=== PATIENT | male | born 1985 | race Caucasian/White ===

== ENCOUNTER 2019-04-11 03:11 | Outpatient (CLI) | payer BC, SELFPAY ==
[2019-04-11 11:28] LABS: Calculated LDL 147; Cholesterol 197 mg/dL (50-200); Glucose 97 mg/dL (70-100); HDL Cholesterol 40 mg/dL (40-60); Triglyceride 51 mg/dL (30-150)
== END 2019-04-11 03:31 ==
PROVIDERS: PCP General Practice; Visit Provider General Practice
DX: Z00.00 Encounter for general adult medical examination without abnormal findings (principal)
CPT/HCPCS: 36415; 80061; 82947; 83721

== ENCOUNTER 2020-03-11 10:40 | Outpatient (REF) | payer BC, SELFPAY ==
[2020-03-12 13:37] LABS: Anion Gap 10.3 mmol/L (3-11); BUN 11 mg/dL (7-18); CO2 28.7 mmol/L (21.0-32.0); CREATININE 1.06 mg/dL (0.70-1.30); Calcium 9.7 mg/dL (8.5-10.1); Calculated LDL 153 mg/dL (<100); Chloride 101 mmol/L (98-107); Cholesterol 219 mg/dL (<200); Glucose 78 mg/dL (74-106); HDL Cholesterol 41 mg/dL (40-60); Potassium 3.9 mmol/L (3.5-5.1); Sodium 140 mmol/L (136-145); Triglyceride 127 mg/dL (<150)
== END 2020-03-11 11:00 ==
LOC: LBN 10:40
PROVIDERS: PCP Nurse Practitioner Family; Visit Provider Nurse Practitioner Family
DX: E78.5 Hyperlipidemia, unspecified (principal)
CPT/HCPCS: 80048; 80061

== ENCOUNTER 2020-04-12 04:18 | Outpatient (CLI) | payer BC, SELFPAY ==
[2020-04-12 16:57] LABS: Anion Gap 9.9 mmol/L (3-11); BUN 17 mg/dL (7-18); CO2 30.1 mmol/L (21.0-32.0); CREATININE 1.04 mg/dL (0.70-1.30); Calcium 9.7 mg/dL (8.5-10.1); Chloride 100 mmol/L (98-107); Glucose 85 mg/dL (74-106); Potassium 3.2 mmol/L (3.5-5.1); Sodium 140 mmol/L (136-145)
== END 2020-04-12 04:38 ==
PROVIDERS: PCP Nurse Practitioner Family; Visit Provider Nurse Practitioner Family
DX: I10 Essential (primary) hypertension (principal)
CPT/HCPCS: 36415; 80048

== ENCOUNTER 2021-06-03 08:00 | Outpatient (CLI) | payer BC, SELFPAY ==
[2021-06-03 12:33] LABS: BUN 13 mg/dL (7-18); CREATININE 1.1 mg/dL (0.70-1.30); Calcium 9.8 mg/dL (8.5-10.1); Chloride 104 mmol/L (98-107); Glucose 93 mg/dL (74-106); Potassium 3.3 mmol/L (3.5-5.1); Sodium 145 mmol/L (136-145)
== END 2021-06-03 08:01 | disposition home or self-care (01) ==
LOC: LOS 08:00
PROVIDERS: PCP Nurse Practitioner Family; Referring Provider Nurse Practitioner Family; Visit Provider Nurse Practitioner Family
DX: I10 Essential (primary) hypertension (principal)
CPT/HCPCS: 36415; 80048

== ENCOUNTER 2024-05-23 01:39 | Outpatient (CLI) | payer BC, SELFPAY ==
[2024-05-23] MEDS: Inhaler, Assist Device 1 EACH MC (11:02)
[2024-05-23] MEDS: Levalbuterol HFA 15 GM INH 4 PUFF IH (11:02)
--- NOTE | 2024-05-27 15:14 | W.PFT ---
Date of service: 05/23/24 Time of Service: 10:00 Pulmonary Function Test Result Requesting Provider Zhane Hogue Indications: Asthma Interpretation Spirometry: Abnormal Lung Volumes: Normal Diffusion Capacity: Normal Impression Spirometry shows a mild decrease in FEV1/FVC at 69%. Normal 98% FVC 93% Normal lung volumes mild air trapping based elevatedR V/TLC. Normal diffusion Normal flow volume curve. Clinical Correlation therefore is recommended.
== END 2024-05-23 01:40 | disposition home or self-care (01) ==
LOC: RT 01:39
PROVIDERS: PCP Nurse Practitioner Family; Visit Provider Nurse Practitioner Family
DX: J45.909 Unspecified asthma, uncomplicated (principal)
CPT/HCPCS: 00123; 94060; 94726; 94729

== ENCOUNTER 2024-11-06 04:15 | Outpatient (CLI) | payer BC, SELFPAY ==
[2024-11-06 10:06] LABS: ESR 6 mm/hr (0-15)
[2024-11-06 10:07] LABS: Abs Immature Grans 0.16 10^3/uL (0.0-0.06); Absolute Basophil Count 0.09 10^3/uL (0.0-0.2); Absolute Eosinophil Count 0.44 10^3/uL (0.0-0.7); Absolute Lymphocyte Count 2.56 10^3/uL (1.2-3.4); Absolute Monocyte Count 0.58 10^3/uL (0.1-0.8); Basophils % 1.1 %; Eosinophils % 5.3 %; HCT 45.1 % (40.0-50.0); HGB 15.8 g/dL (13.5-17.5); Immature Grans % 1.9 %; Lymphocytes % 31.1 %; MCH 30.4 pg (27.0-33.0); MCV 87 fL (80-95); MPV 8.9 fL (8.0-11.0); Neutrophils % 53.6 %; Platelet Count 486 10^3/uL (130-400); RBC 5.19 10^6/uL (4.36-5.78); RDW 11.5 % (11.8-14.1); RDW-SD 37.1 fL; WBC 8.23 10^3/uL (4.4-10.8)
[2024-11-06 10:27] LABS: Bilirubin Negative (Negative); Blood Negative (Negative); Clarity Sl Cloudy (Clear); Glucose Negative (Negative); Ketones Trace mg/dL (Negative); Leukocyte Esterase Negative (Negative); Nitrite Negative (Negative); Specific Gravity 1.025 (1.005-1.025); pH 6.5 (5-8)
[2024-11-06 10:34] LABS: Bacteria Rare HPF (Negative); Crystals Negative HPF (Negative); Epithelial Cells Negative HPF (Negative); Mucus Negative (Negative); RBC 0-2 HPF (0-2); WBC Negative HPF (0-5)
[2024-11-06 10:35] LABS: C & S Indicated? No; Casts Negative LPF (Negative)
[2024-11-06 11:15] LABS: Hemoglobin A1C 5.4 % (<5.7)
[2024-11-06 11:22] LABS: ALT 30 U/L (16-63); AST 19 U/L (15-37); Albumin 3.9 g/dL (3.4-5.0); Alkaline Phosphatase 78 U/L (46-116); Anion Gap 10.7 mmol/L (3-11); BUN 19 mg/dL (7-18); Bilirubin, Total 0.24 mg/dL (0.2-1.0); CO2 31.3 mmol/L (21.0-32.0); CREATININE 1.1 mg/dL (0.70-1.30); Calculated LDL 150 mg/dL (<100); Chloride 102 mmol/L (98-107); Cholesterol 223 mg/dL (<200); Estimated GFR 87.57 (mL/min/1.73m2); Glucose 80 mg/dL (74-106); HDL Cholesterol 35 mg/dL (40-60); Potassium 3.8 mmol/L (3.5-5.1); Sodium 144 mmol/L (136-145); TSH (W/Ref FT4) 0.78 uIU/mL (0.36-3.74); Total Protein 7.8 g/dL (6.4-8.2); Triglyceride 190 mg/dL (<150)
[2024-11-06 11:35] LABS: C-Reactive Protein 1.65 mg/dL (<or=0.5)
[2024-11-06 19:10] LABS: HBs Antibody, Quant >1000.0 mIU/mL (See Note); HIV-1/2 Ag & Ab Screen Negative (Negative); Hep B Surface Ab Positive (See Note); Hepatitis B Core Antibody Negative (Negative); Hepatitis B Surface Antigen Negative (Negative)
[2024-11-06 19:15] LABS: Hepatitis C Ab w Rflx HCV PCR Negative (Negative)
[2024-11-07 12:23] LABS: dsDNA Ab, IgG <22.0 IU/mL (<27.0)
[2024-11-07 14:14] LABS: Albumin 56.6 % (55.8-66.1); Albumin g/dL 4.2 g/dL (3.6-5.2); Comment (See Note); Total Protein 7.5 g/dL (6.3-8.2)
[2024-11-07 14:21] LABS: Immunotyping, Serum (See Note)
[2024-11-07 14:42] LABS: ANA Interpretation Negative (Negative)
== END 2024-11-06 04:16 | disposition home or self-care (01) ==
PROVIDERS: PCP Nurse Practitioner Family; Visit Provider Nurse Practitioner Family
DX: Z11.4 Encounter for screening for human immunodeficiency virus [HIV] (principal); Z00.00 Encounter for general adult medical examination without abnormal findings; Z11.59 Encounter for screening for other viral diseases; L93.0 Discoid lupus erythematosus; E78.5 Hyperlipidemia, unspecified
CPT/HCPCS: 36415; 80053; 80061; 85652; 86704; 86706; 86803; 87340; 87389; 81003; 81015; 83036; 84165; 84443; 85025; 86038; 86140; 86225; 86320